=== PATIENT | female | born 1955 | race Caucasian/White ===

== ENCOUNTER 2017-07-31 14:43 | Outpatient (CLI) | payer OTHER | END 2017-07-31 14:44 | disposition home or self-care (01) | LOC: CTENTCT 14:43 | PROVIDERS: ATTEND Specialist | DX: J32.9 Chronic sinusitis, unspecified (principal) | CPT/HCPCS: 70486 ==

== ENCOUNTER 2017-12-01 17:42 | Emergency (ER) | payer BC, SELFPAY ==
--- NOTE | 2017-12-01 18:48 | RAD ---
RIGHT KNEE FOUR VIEWS: History: Knee pain. FINDINGS: There are arthritic changes in the knee. There is mild to moderate medial compartment narrowing. Ther e is patellofemoral degenerative change. There are no signs of fracture or joint effusion. IMPRESSION: Moderate arthritic changes in the knee. POS: [facility]
== END 2017-12-01 19:30 | disposition home or self-care (01) ==
LOC: ERS 17:42
DX: M25.561 Pain in right knee (principal)